=== PATIENT | male | born 1980 | race Hispanic/Latino ===

== ENCOUNTER 2024-08-27 12:26 | Emergency (ER) | payer OTHER, SELFPAY ==
--- NOTE | ~2024-08-27 | XR_ITS ---
XR forearm RT 2V 08/27/2024 13:37 Indication: Right arm pain after dog bite Procedure: 2 views right forearm Comparison: No prior studies for comparison. Findings: No fracture, subluxation or dislocation. There is mild soft tissue swelling dorsally overly ing the forearm. No foreign bodies. Impression: 1: No acute bone or joint abnormality. Reviewed, dictated and finalized at location B. TER OPERATOR Impression: 1: No acute bone or joint abnormality.
[2024-08-27 12:41] VITALS: BP 123/85; PULSE 73; RESP 20; TEMP 36.4; O2SAT 100
--- NOTE | 2024-08-27 13:19 | ED.ANIMALBIT ---
HPI - Animal Bite General Chief Complaint: Animal Bite Stated Complaint: dog bite? Time Seen by Provider: 08/27/24 13:19 Focused HPI: This is a 44 year old male that presents to the ER for dog bite this morning on the right forearm. Sustained this morning. 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 He is up to date on tetanus vaccination. GENERAL: Well-appearing, well-nourished, and in no acute distress. HEAD: Normocephalic, atraumatic. CHEST: Clear to auscultation. ?No respiratory distress. HEART: Regular rate and rhythm.? NEURO: ?Alert and oriented x3. Patient screened in triage and initial orders placed.? ?Additional care and disposition to be based upon?diagnostic testing and treatment. Related Data Allergies Allergy/AdvReac Type Severity Reaction Status Date / Time No Known Allergies Allergy Verified 08/27/24 12:44 Review of Systems Review of Systems: All systems reviewed & are unremarkable except as noted in HPI and below Constitutional: Constitutional: Denies fever(s) Integumentary/Breasts: Comments: Reports lacerations PMFSH Past Medical History Medical History (Updated 08/27/24 @ 13:30 by Alla Dinh PA-C) No active medical problems Social History Social History (Updated 08/27/24 @ 13:27 by Alla Dinh PA-C) Substance use: never Exam Const: General: healthy appearing and no acute distress Resp: Effort & Inspection: normal respiratory effort Cardio: Rate: regular rate Skin: General skin exam: normal color Wounds: wounds noted (superficial dog bite to the right forearm) Course Course Emergency Course: patient educated on further wound care Vital Signs Vital signs: Vital Signs Temperature 97.5 F L 08/27/24 12:41 Pulse Rate 73 08/27/24 12:41 Respiratory Rate 20 08/27/24 12:41 Blood Pressure 123/85 08/27/24 12:41 Pulse Oximetry 100 08/27/24 12:41 Oxygen Delivery Room Air 08/27/24 12:41 Temperature 97.5 F L 08/27/24 12:41 Pulse Rate 73 08/27/24 12:41 Respiratory Rate 20 08/27/24 12:41 Blood Pressure 123/85 08/27/24 12:41 Pulse Oximetry 100 08/27/24 12:41 Oxygen Delivery Room Air 08/27/24 12:41 Procedures Laceration Laceration 1: Date: 08/27/24 Time: 13:28 Site: upper extremity Side (If applicable): right Description: other (multiple superficial wounds) Pre-repair: irrigated extensively ====== Skin Level ====== ====== Subcutaneous Layer ====== ====== Muscle Layer ====== ====== Tendon Layer ====== Dressing: Superficial wounds irrigated and covered with antibiotic ointment and a bandage MDM - Animal Bite MDM Narrative Medical decision making narrative: patient presents to the ER for dog bite. Wound superficial. Irrigated and covered with antibiotic ointment and a bandage. He is up to date on tetanus. Will be started on prophylactic antibiotics. Educated on further wound care Differential Diagnosis Differential diagnosis: Likely dog bite Imaging Data Radiologist's impression: ITS Impressions Forearm X-Ray 08/27/24 13:38 Impression: 1: No acute bone or joint abnormality. Critical Care Time Critical Care Time Critical Care Time: No Discharge Plan Discharge Clinical Impression: Dog bite Qualifiers: Encounter type: initial encounter Qualified Code(s): W54.0XXA - Bitten by dog, initial encounter Patient Disposition: Home, Self-Care Condition: Stable Instructions: Antibiotic Form, Animal Bite (ED) Additional Instructions: Return to the emergency department if you experience fever, redness or swelling of your wound, abnormal drainage from your wound, or any other symptoms that are concerning to you. Apply antibiotic ointment daily. Do not soak the wound. Clean with mild soap and water daily. Take oral antibiotics as prescribed Follow-up with your primary care doctor for wound check Patient Language: Romanian Prescriptions: New amoxicillin-pot clavulanate 875-125 mg tablet 1 tablet PO Q12H 5 Days Qty: 10 0RF Follow-up/Referrals: PHYSICIAN NOT ON STAFF,NONSTAFF [Primary Care Provider] -
== END 2024-08-27 14:51 | disposition home or self-care (01) ==
LOC: ANHED 14:48
PROVIDERS: Emergency Provider Physician Assistant
DX: S51.851A Open bite of right forearm, initial encounter (principal); W54.0XXA Bitten by dog, initial encounter
CPT/HCPCS: 73090; 99283